=== PATIENT | male | born 1975 | race Caucasian/White ===

== ENCOUNTER → 2017-06-30 | Outpatient (CLI) | payer OTHER ==
[2017-06-30 09:45] LABS: HEMOGLOBIN 9.6 g/dL (13.5-17.0); HGB HCT DIFFERENCE -0.2; MEAN CORPUSCULAR HEMOGLOBIN 31.1 pg (27.0-33.4); MEAN CORPUSCULAR VOLUME 94 fl (80-97); RED BLOOD COUNT 3.08 10^6/uL (4.35-5.55); RED CELL DISTRIBUTION WIDTH 15.9 % (11.5-14.0)
[2017-06-30 10:28] LABS: BASOPHILS % (MANUAL) 0 % (0-2); EOSINOPHILS % (MANUAL) 0 % (0-6)
[2017-06-30 12:19] LABS: ANISOCYTOSIS SLIGHT; BAND NEUTROPHILS % (MANUAL) 6 % (3-5); LYMPHOCYTES % (MANUAL) 1 % (13-45); TOTAL CELLS COUNTED 100
[2017-06-30 12:20] LABS: POLYCHROMASIA 1+; TOXIC GRANULATION 2+
[2017-06-30 12:33] LABS: WHITE BLOOD COUNT 38.6 10^3/uL (4.0-10.5)
[2017-06-30 14:33] LABS: PATH REVIEW PATHOLOGIST REVIEWED
== END ==
LOC: OD 08:19
DX: C85.20 Mediastinal (thymic) large B-cell lymphoma, unspecified site (principal)
CPT/HCPCS: 36415; 85025

== ENCOUNTER → 2017-07-03 | Outpatient (CLI) | payer OTHER ==
[2017-07-03 11:13] LABS: HEMATOCRIT 30.3 % (37.9-51.0); HEMOGLOBIN 10.2 g/dL (13.5-17.0); HGB HCT DIFFERENCE 0.3; MEAN CORPUSCULAR HEMOGLOBIN 30.8 pg (27.0-33.4); MEAN CORPUSCULAR HGB CONC 33.6 g/dL (32.0-36.0); MEAN CORPUSCULAR VOLUME 92 fl (80-97)
[2017-07-03 11:51] LABS: BAND NEUTROPHILS % (MANUAL) 3 % (3-5); BASOPHILS % (MANUAL) 0 % (0-2); EOSINOPHILS % (MANUAL) 0 % (0-6); LYMPHOCYTES % (MANUAL) 4 % (13-45); NUCLEATED RED BLOOD CELLS 1 /100 WBC (0); TOTAL CELLS COUNTED 100
[2017-07-03 11:52] LABS: ANISOCYTOSIS SLIGHT; TOXIC GRANULATION 2+
[2017-07-03 14:42] LABS: WHITE BLOOD COUNT 40.5 10^3/uL (4.0-10.5)
== END ==
LOC: OD 08:57
DX: C85.20 Mediastinal (thymic) large B-cell lymphoma, unspecified site (principal)
CPT/HCPCS: 36415; 85025